=== PATIENT | female | born 1965 | race Caucasian/White ===

== ENCOUNTER 2019-09-25 18:26 | Emergency (ER) | payer OTHER ==
[~2019-09-25] VITALS: Ht 167.6 cm; Wt 68.0 kg
--- NOTE | 2019-09-25 19:10 | NUR ---
PT BIB RA WITH A C/O ETOH. PT WAS FOUND IN FRONT OF A ISLAM INTOXICATED WITH AN UNSTEADY GAIT. PT WAS TRIAGED AND TAKEN TO ER 13. PT WAS PLACED ON THE MONITOR AND CONTINUOUS PULSE OX. PT WILL CONTINUE TO BE MONITORED.
--- NOTE | 2019-09-25 19:11 | NUR ---
KLEBER IS AT THE BEDSIDE.
--- NOTE | 2019-09-25 19:15 | NUR ---
PT APPEARS TO BE RESTING COMFORTABLY WITH NO S/S OF PAIN OR DISRESS.
--- NOTE | 2019-09-25 20:58 | NUR ---
PT IS EASILY AROUSED. PT IS STILL UNSTEADY ON HER FEET. PT IS ON THE MONITOR AND CONITNUOUS PULSE OX.
--- NOTE | 2019-09-25 22:55 | NUR ---
PT APPEARS TO BE SLEEPING SOUNDLY WITH NO S/S OF PAIN OR DISTRESS. PT IS ON THE MONITOR AND CONTINUOUS PULSE OX.
--- NOTE | 2019-09-26 01:15 | NUR ---
PT APPEARS TO BE SLEEPING SOUNDLY WITH NO S/S OF PAIN OR DISTRESS. SITTER IS NEAR THE BEDSIDE. PT IS ON THE MONITOR AND CONTINUOUS PULSE OX. WILL CONTINUE TO MONITOR THE PT.
--- NOTE | 2019-09-26 02:55 | NUR ---
PT APPEARS TO BE SLEEPING SOUNDLY WITH NO S/S OF PAIN OR DISTRESS. VSS
[2019-09-26 06:12] VITALS: BP 118/75
--- NOTE | 2019-09-26 06:12 | NUR ---
Patient discharged to home in stable condition. Written and verbal after care instructions given. Patient verbalizes understanding of instruction. VSS. RR even and unlabored. Pt denies any pain. Ambulated with steady gait.
== END 2019-09-26 06:13 | disposition home or self-care (01) ==
LOC: ER 18:30
DX: F10.10 Alcohol abuse, uncomplicated (principal); Y90.9 Presence of alcohol in blood, level not specified; Z59.0 Homelessness

== ENCOUNTER 2021-10-10 19:41 | Emergency (ER) | payer OTHER ==
[~2021-10-10] VITALS: Ht 157.5 cm; Wt 54.4 kg
--- NOTE | 2021-10-10 19:50 | NUR ---
BIBRA 39 FOR SEVERE ALCOHOL INTOXICATION. PER EMS PT FOUND IN CAR, UNABLE TO OBTAIN ANY INFO FROM THE PT. PT SLEEPING AROUSABLE TO PAIN. TOLERATING R/A WELL WITH NO SOB. CONNECTED PT TO POX AND MONITOR.
--- NOTE | 2021-10-10 20:45 | NUR ---
EMPLOYEE RELATIONS REPRESENTATIVE AT PT'S BEDSIDE. URINE COLLECTED AND GIVEN TO LAB
[2021-10-10 21:18] LABS: BASOPHILS # (AUTO) 0.1 K/uL (0.0-0.2); BASOPHILS % (AUTO) 1.1 % (0.0-2.0); EOSINOPHILS % (AUTO) 0.6 % (0.0-6.0); HEMATOCRIT 40 % (33-45); HEMOGLOBIN 13.5 g/dL (11.5-14.8); LYMPHOCYTES # (AUTO) 1.8 K/uL (0.8-4.8); LYMPHOCYTES % (AUTO) 39.5 % (20.0-44.0); MEAN CORPUSCULAR HGB CONC 34 g/dl (31.0-36.0); MEAN CORPUSCULAR VOLUME 99 fL (82-100); MONOCYTES # (AUTO) 0.2 K/uL (0.1-1.30); MONOCYTES % (AUTO) 4.6 % (2.0-12.0); NEUTROPHILS # (AUTO) 2.4 K/uL (1.8-8.9); NEUTROPHILS % (AUTO) 54.2 % (43.0-81.0); PLATELET COUNT (AUTO) 167 K/uL (150-450); RED BLOOD CELL COUNT(AUTO) 4.04 MIL/uL (4.0-5.2); WHITE BLOOD COUNT (AUTO) 4.5 K/uL (4.3-11.0)
[2021-10-10 21:25] LABS: BILIRUBIN,URINE NEGATIVE (NEGATIVE); COLOR,URINE YELLOW (YELLOW); LEUKOCYTE ESTERASE ,URINE NEGATIVE (NEGATIVE); NITRITE, URINE NEGATIVE (NEGATIVE); PROTEIN,URINE NEGATIVE (NEGATIVE); UGLUCOSE NEGATIVE (NEGATIVE); UROBILINOGEN,URINE 0.2 EU/dL (0.2)
[2021-10-10 21:33] LABS: CALCIUM, SERUM 7.8 mg/dL (8.5-10.1); CARBON DIOXIDE 27 mmol/L (21-32); CHLORIDE 109 mmol/L (98-107); CREATININE 0.8 mg/dL (0.6-1.3); GLUCOSE 104 mg/dL (74-106); POTASSIUM 3.1 mmol/L (3.5-5.1); SODIUM SERUM 148 mmol/L (136-145); UREA NITROGEN, BLOOD 7 mg/dL (7-18)
[2021-10-10 21:43] LABS: BACTERIA,URINE None seen /HPF (None Seen); SQUAMOUS EPITHELIAL CELL,UR 0-2 /HPF (None Seen); WBC,URINE 0-2 /HPF (0-3)
[2021-10-10 21:45] LABS: ALANINE AMINOTRANSFERASE 22 U/L (12-78); ALBUMIN 3.7 g/dL (3.4-5.0); ALCOHOL, BLOOD 459 mg/dL (0-0); ALKALINE PHOSPHATASE 71 U/L (46-116); ASPARTATE AMINOTRANSFERASE 26 U/L (15-37); BILIRUBIN,DIRECT 0.1 mg/dL (0.0-0.2); BILIRUBIN,TOTAL 0.3 mg/dL (0.2-1.0); TOTAL PROTEIN, SERUM 6.8 g/dL (6.4-8.2)
[2021-10-10 21:46] LABS: ACETAMINOPHEN < 2 ug/ml (10-30)
--- NOTE | 2021-10-11 00:48 | NUR ---
Patient discharged to home in stable condition. Patient walked with a steady gait. Written and verbal after care instructions given. Patient verbalizes understanding of instruction.
[2021-10-11 00:49] VITALS: BP 123/88
== END 2021-10-11 00:50 | disposition home or self-care (01) ==
LOC: ER 19:44
DX: F10.129 Alcohol abuse with intoxication, unspecified (principal); Y90.8 Blood alcohol level of 240 mg/100 ml or more
CPT/HCPCS: 36415; 80048-TC; 80076-TC; 81001; 85025-TC; G0480